=== PATIENT | female | born 1980 | race Caucasian/White ===

== ENCOUNTER 2024-01-26 11:55 | Inpatient (IN) | payer OTHER ==
[~2024-01-26] VITALS: Ht 121.9 cm; Wt 2.7 kg
[2024-02-14] MEDS ORDERED: SYNTHROID75 MCG PO (09:58)
[2024-02-14] MEDS ORDERED: IRON325 MG PO (09:58)
[2024-02-14] MEDS ORDERED: PRENATAL TABLE1 EAC1 PO (09:58)
[2024-02-14] MEDS ORDERED: OXYTOCIN 1,000 ML IV SCH ×2 (10:00→22:00)
[2024-02-14] MEDS ORDERED: RINGERS SOLUTION,LACTATED 1,000 ML IV SCH (10:00)
[2024-02-14 10:27] LABS: HEMATOCRIT 39.1 % (36.0-45.00); HEMOGLOBIN 13.2 g/dL (12.0-15.00); MEAN CELL VOLUME 86.5 fL (80.00-100.00); MEAN CORPUSCULAR HEMOGLOBIN 29.1 pg (27.00-32.0); MEAN CORPUSCULAR HGB CONC 33.7 g/dl (32.0-36.0); PLATELET COUNT 211 K/uL (150-450); RED BLOOD COUNT 4.52 M/uL (4.00-6.00); RED CELL DISTRIBUTION WIDTH 17.7 % (11.5-14.5)
[2024-02-14 10:28] LABS: URINE APPEARANCE Clear; URINE BILIRRUBIN Negative (NEGATIVE); URINE BLOOD Negative; URINE COLOR Yellow; URINE GLUCOSE Negative (NEGATIVE); URINE LEUKOCYTE Negative; URINE NITRATE Negative; URINE PROTEIN Negative (NEGATIVE); URINE UROBILINOGEN 0.2 E.U./dl
[2024-02-14 10:29] LABS: URINE BACTERIA 120.8 uL (0.0-1933); URINE EPITHELIAL CELLS 14.9 uL (0.0-38.8)
[2024-02-14 11:03] LABS: ALBUMIN 2.9 gm/dL (3.4-5.0); BILIRUBIN TOTAL 0.2 mg/dL (0.3-1.2); CREATININE SERUM 0.52 mg/dL (0.55-1.02); GFR 129.32; POTASSIUM 4.13 mEq/L (3.5-5.1); TOTAL PROTEIN 6.9 gm/dL (6.4-8.2)
[2024-02-14 11:07] LABS: INR < 0.93; PARTIAL THROMBOPLASTIN TIME 29.5 SECONDS (22.0-34.0); PROTHROMBIN TIME 9.5 SECONDS (9.0-11.5)
[2024-02-14 11:18] LABS: URINE RBC 1.6 uL (0.0-20.8)
[2024-02-14] MEDS ORDERED: ERYTHROMYCIN BASE 1 GM TUBE OP ONE (20:45)
[2024-02-14] MEDS ORDERED: OXYTOCIN 10 UNITS/ML VIAL IV ONE (20:45)
[2024-02-14] MEDS ORDERED: MEPERIDINE HCL/PF 50 MG/ML VIAL IM PRN (22:00)
[2024-02-14] MEDS ORDERED: IBUprofen 400 MG TABLET PO PRN (22:00)
[2024-02-15] MEDS ORDERED: LEVOTHYROXINE SODIUM 75 MCG TABLET PO SCH (06:00)
[2024-02-15] MEDS ORDERED: OxyCODONE HCL/APAP UD (PERCOCET) PO PRN (08:30)
[2024-02-15] MEDS ORDERED: DOCUSATE SODIUM 100MG CAP PO SCH (09:00)
== END 2024-02-17 14:21 | disposition home or self-care (01) | DRG 785 ==
LOC: OB/GYN 11:55 → LDR 02-14 07:48 → OB/GYN 02-14 20:44
PROVIDERS: ADMIT Obstetrics & Gynecology; ATTEND Obstetrics & Gynecology
PROC: 0UB70ZZ Excision of Bilateral Fallopian Tubes, Open Approach (ICD-10-PCS; 2024-02-14)
PROC: 4A1HXCZ Monitoring of Products of Conception, Cardiac Rate, External Approach (ICD-10-PCS; 2024-02-14)
PROC: 10D00Z1 Extraction of Products of Conception, Low, Open Approach (ICD-10-PCS; principal; 2024-02-14 20:00)
DX: O33.8 Maternal care for disproportion of other origin (principal); Z3A.39 39 weeks gestation of pregnancy; Z30.2 Encounter for sterilization; Z37.0 Single live birth; Z20.822 Contact with and (suspected) exposure to COVID-19

== ENCOUNTER 2024-02-02 12:52 | Outpatient (CLI) | payer OTHER | END 2024-02-02 13:44 | disposition home or self-care (01) | LOC: NST 12:52 | PROVIDERS: ATTEND Obstetrics & Gynecology Gynecology | DX: Z34.83 Encounter for supervision of other normal pregnancy, third trimester (principal) ==